=== PATIENT | female | born 1960 | race African-American/Black ===

== ENCOUNTER 2016-08-13 05:09 | Emergency (ER) | payer MEDICAID ==
[~2016-08-13] VITALS: Ht 175.3 cm; Wt 79.0 kg
[2016-08-13] MEDS ORDERED: KETOROLAC 60MG/2ML VIAL IM ONE (06:30)
[2016-08-13 06:59] LABS: CLARITY URINE CLEAR (CLEAR); COLOR URINE YELLOW (YELLOW); GLUCOSE URINE NEGATIVE (NEGATIVE); KETONES URINE NEGATIVE (NEGATIVE); LEUKOCYTE ESTERASE URINE NEGATIVE (NEGATIVE); NITRITE URINE NEGATIVE (NEGATIVE); OCCULT BLOOD URINE NEGATIVE (NEGATIVE); PH URINE 5.5 (4.5-8.0); PROTEIN URINE NEGATIVE (NEGATIVE); SPECIFIC GRAVITY URINE 1.015 (1.005-1.030); UROBILINOGEN URINE 0.2 E.U./dL (0.2-1.0)
[2016-08-13 07:57] VITALS: BP 135/83
== END 2016-08-13 07:59 | disposition home or self-care (01) ==
LOC: ER 05:11
DX: G43.909 Migraine, unspecified, not intractable, without status migrainosus (principal)
CPT/HCPCS: 81003; 96372; 99283; J1885; Z7610

== ENCOUNTER 2018-11-01 20:46 | Emergency (ER) | payer MEDICAID ==
[~2018-11-01] VITALS: Ht 175.3 cm; Wt 81.0 kg
[2018-11-01 21:26] LABS: CLARITY URINE CLOUDY (CLEAR); COLOR URINE YELLOW (YELLOW); KETONES URINE NEGATIVE (NEGATIVE); LEUKOCYTE ESTERASE URINE 2+ (NEGATIVE); NITRITE URINE POSITIVE (NEGATIVE); OCCULT BLOOD URINE NEGATIVE (NEGATIVE); PROTEIN URINE NEGATIVE (NEGATIVE); SPECIFIC GRAVITY URINE 1.021 (1.005-1.030); UROBILINOGEN URINE 0.2 E.U./dL (0.2-1.0)
[2018-11-01] MEDS ORDERED: CEPHALEXIN 250MG CAPSULE PO ONE (23:15)
[2018-11-01 23:45] VITALS: BP 115/72
[2018-11-01] MEDS ORDERED: IBUPROFEN 600MG TABLET PO ONE (23:45)
== END 2018-11-01 23:49 | disposition home or self-care (01) ==
LOC: ER 20:46
DX: N12 Tubulo-interstitial nephritis, not specified as acute or chronic (principal); M54.40 Lumbago with sciatica, unspecified side; I10 Essential (primary) hypertension; F17.210 Nicotine dependence, cigarettes, uncomplicated
CPT/HCPCS: 81003; 81025; 99283

== ENCOUNTER 2022-05-28 04:51 | Emergency (ER) | payer OTHER, MEDICAID ==
[~2022-05-28] VITALS: Ht 175.3 cm; Wt 86.9 kg
[2022-05-28] MEDS ORDERED: IBUPROFEN 400MG TABLET PO NR (07:30)
[2022-05-28] MEDS ORDERED: IBUP-2028 MT (08:49)
[2022-05-28 09:35] VITALS: BP 126/75
== END 2022-05-28 09:37 | disposition home or self-care (01) ==
LOC: ER 04:51
DX: S33.5XXA Sprain of ligaments of lumbar spine, initial encounter (principal); S53.402A Unspecified sprain of left elbow, initial encounter; V49.59XA Passenger injured in collision with other motor vehicles in traffic accident, initial encounter; Y93.89 Activity, other specified; Y92.89 Other specified places as the place of occurrence of the external cause; Y99.8 Other external cause status; I10 Essential (primary) hypertension; Z90.710 Acquired absence of both cervix and uterus; Z98.51 Tubal ligation status; Z98.890 Other specified postprocedural states
CPT/HCPCS: 72100; 73030; 73080; 99284; A4565